=== PATIENT | male | born 2000 | race Caucasian/White ===

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

== ENCOUNTER 2022-04-01 19:50 | Emergency (ER) | payer OTHER ==
[~2022-04-01] VITALS: Ht 167.6 cm; Wt 68.2 kg
[2022-04-01 20:01] VITALS: BP 148/95
== END 2022-04-01 23:00 | disposition left against medical advice (07) ==
LOC: EMS 20:12
DX: Z53.21 Procedure and treatment not carried out due to patient leaving prior to being seen by health care provider (principal)